=== PATIENT | male | born 2000 | race African-American/Black ===

== ENCOUNTER 2019-10-02 18:56 | Emergency (ER) | payer SELFPAY ==
[2019-10-02 19:11] VITALS: BMI 19.9
--- NOTE | 2019-10-02 19:17 | PDOC ---
Rapid Medical Evaluation Chief Complaint: Sore Throat Time Seen by Provider: 10/02/19 19:17 Medical Evaluation: Allergies Allergy/AdvReac Type Severity Reaction Status Date / Time No Known Allergies Allergy Verified 10/02/19 19:08 Vital Signs Temp Pulse Resp BP Pulse Ox 102.0 F H 89 20 108/52 L 96 10/02/19 19:05 10/02/19 19:05 10/02/19 19:05 10/02/19 19:05 10/02/19 19:05 10/02/19 19:59 18 YEAR OLD C/O SORE THROAT AND FEVER X 2 DAYS. denies covid contact. denies SOB, chest pain NVD, loss of taste and smell PE; patient alert ox3, pharyngeal eyrthema, no lymphadenopathy A: pharyngitis P: rapid strep covid Discharge Disposition - Diagnosis Suspected 2019 novel coronavirus infection Pharyngitis Qualifiers: Pharyngitis/tonsillitis etiology: unspecified etiology Qualified Code(s): J02.9 - Acute pharyngitis, unspecified - Discharge Dispostion Last Admission D/C Date: 02/06/00 - Referrals - Patient Instructions - Post Discharge Activity
[2019-10-02] MEDS ORDERED: IBUPROFEN 600 MG TABLET (FP) PO ONE ×2 (19:29→19:33)
--- NOTE | 2019-10-02 20:08 | PDOC ---
History of Present Illness - General Chief Complaint: Sore Throat Stated Complaint: SORE THROAT/FEVER/HEADACHE Time Seen by Provider: 10/02/19 19:17 History Source: Patient - History of Present Illness Initial Comments: 10/02/19 20:04 18 YEAR OLD C/O SORE THROAT AND FEVER X 2 DAYS. denies covid/ sick contact. denies SOB, chest pain NVD, loss of taste and smell. patient reports taking aleve last night. no pmhx Past History - Medical History Allergies/Adverse Reactions: Allergies Allergy/AdvReac Type Severity Reaction Status Date / Time No Known Allergies Allergy Verified 10/02/19 19:08 Home Medications: Ambulatory Orders Azithromycin [Zithromax 250mg Tablets -] 250 mg PO UTDICT #6 tab 08/25/11 Amoxicillin/Potassium Clav [Amox-Clav 875-125 mg Tablet] 1 each PO BID #20 tablet 10/02/19 Ibuprofen 600 mg PO QID PRN #20 tablet 10/02/19 - Psycho-Social/Smoking History Smoking Status: No Smoking History: Never smoked Number of Cigarettes Smoked Daily: 0 Information on smoking cessation initiated: No - Substance Abuse Hx (Audit-C & DAST Scrn) How often the patient has a drink containing alcohol: Never Score: In Men: 4 or > Positive; In Women: 3 or > Positive: 0 Screen Result (Pos requires Nsg. Audit-10AR): Negative In the last yr the pt used illegal drug/Rx for NonMed reason: No Score: Yes response is considered Positive: 0 Screen Result (Positive result requires Nsg. DAST-10): Negative Review of Systems - Review of Systems Able to Perform ROS?: Yes Is the patient limited Afghan proficient: No Constitutional: Yes: Fever HEENTM: Yes: Throat Pain. No: Symptoms Reported, See HPI, Eye Pain, Blurred Vision, Tearing, Recent change in vision, Double Vision, Cataracts, Ear Pain, Ocular Prothesis, Ear Discharge, Nose Pain, Nose Congestion, Tinnitus, Nose Bleeding, Hearing Loss, Throat Swelling, Mouth Pain, Dental Problems, Difficulty Swallowing, Mouth Swelling, Other Respiratory: No: Symptoms reported, See HPI, Cough, Orthopnea, Shortness of Breath, SOB with Exertion, SOB at Rest, Stridor, Wheezing, Productive cough, Hemoptysis, Other *Physical Exam - Vital Signs Last Vital Signs Temp Pulse Resp BP Pulse Ox 102.0 F H 89 20 108/52 L 96 10/02/19 19:05 10/02/19 19:05 10/02/19 19:05 10/02/19 19:05 10/02/19 19:05 - Physical Exam General Appearance: Yes: Appropriately Dressed HEENT: positive: TMs Normal, Pharyngeal Erythema. negative: Tonsillar Exudate, Nasal Congestion Neck: positive: Trachea midline, Supple. negative: Tender Respiratory/Chest: positive: Lungs Clear, Normal Breath Sounds Cardiovascular: positive: Regular Rhythm, Regular Rate Gastrointestinal/Abdominal: positive: Normal Bowel Sounds, Soft. 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 strep Pharyngitis P: Rapid strep covid ibuprofen decadron 10/02/19 21:13 Last Vital Signs Temp Pulse Resp BP Pulse Ox 98.5 F 81 18 102/57 L 96 10/02/19 20:47 10/02/19 20:47 10/02/19 20:47 10/02/19 20:47 10/02/19 20:47 Discharge - Discharge Information Problems reviewed: Yes Clinical Impression/Diagnosis: Suspected 2019 novel coronavirus infection Pharyngitis Qualifiers: Pharyngitis/tonsillitis etiology: streptococcus Qualified Code(s): J02.0 - Streptococcal pharyngitis Condition: Stable Disposition: HOME - Additional Discharge Information Prescriptions: Amoxicillin/Potassium Clav [Amox-Clav 875-125 mg Tablet] 1 each PO BID #20 tablet Ibuprofen 600 mg PO QID PRN #20 tablet PRN Reason: Fever - Follow up/Referral - Patient Discharge Instructions Patient Printed Discharge Instructions: Strep Throat Additional Instructions: gargle with warm salty water. drink plenty of fluids take Augmentin as prescribed your covid test is pending. we will call you with results. isolate yourself at home until you are without symptoms for 72 hours. wear a mask maintain 6 ft social distancing. - Post Discharge Activity Work/Back to School Note: Back to Work
[2019-10-02] MEDS ORDERED: DEXAMETHASONE 4 MG TABLET (FP) ONE (20:32)
[2019-10-02] MEDS ORDERED: PENICILLIN G BENZATHINE 1,200,000 UNIT/2 ML PFS IM ONE (20:34)
[2019-10-02 20:48] VITALS: BP 102/57; PULSE 81; TEMP 98.5
[2019-10-03] MEDS ORDERED: DEXAMETHASONE 4 MG TABLET (FP) PO ONE (20:30)
== END 2019-10-02 20:59 | disposition home or self-care (01) ==
LOC: JER 18:56
DX: J02.0 Streptococcal pharyngitis (principal); Z11.59 Encounter for screening for other viral diseases
CPT/HCPCS: 87880; 99284-25; U0003

== ENCOUNTER 2019-12-08 08:06 | Emergency (ER) | payer OTHER ==
[2019-12-08 08:21] VITALS: BP 115/42; PULSE 63; TEMP 98.4; BMI 20.2
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
[2019-12-08] MEDS ORDERED: ACETAMINOPHEN 325 MG TABLET (FP) PO ONE (08:56)
[2019-12-08] MEDS ORDERED: IBUPROFEN 400 MG TABLET (FP) PO ONE (08:56)
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
[2019-12-08] MEDS ORDERED: ACETAMINOPHEN 325 MG TABLET (FP) ONE (09:06)
[2019-12-08] MEDS ORDERED: IBUPROFEN 600 MG TABLET (FP) PO ONE (09:06)
== END 2019-12-08 10:05 | disposition home or self-care (01) ==
LOC: JER 08:06
DX: M25.561 Pain in right knee (principal)
CPT/HCPCS: 73562-TC-RT-FY; 99284-25